=== PATIENT | female | born 1945 | race Caucasian/White ===

== ENCOUNTER 2016-12-16 11:55 | Observation (INO) | payer MEDICARE ==
[~2016-12-16] VITALS: Ht 162.6 cm; Wt 117.6 kg
[~2016-12-16 11:55] MED LIST: AMITIZA24 MCG PO; CATAPRES 0.1MG0.1 MG PO; CELECOXIB200 MG PO; COLACE 100MG C100 MG PO; CYMBALTA60 MG PO; FLEXERIL 10 MG10 MG PO; LASIX40 MG PO; LYRICA100 MG PO; MIRTAZAPINE15 MG PO; MOBIC15 MG PO; NORCO 7.5-3251 EACH PO; OMNICEF 300 MG300 MG PO; PLAQUENIL 200200 MG PO; PRILOSEC OTC20 MG PO; TENORMIN 25 MG25 MG PO; ZANTAC150 MG PO
[2016-12-16 21:04] LABS: HEMOGLOBIN 14.2 gm/dl (12.3-15.3); RED BLOOD COUNT 4.93 M/UL (4.00-5.10); WHITE BLOOD COUNT 8.9 K/UL (4.5-11.0)
[2016-12-16 21:27] LABS: BUN/CREATININE RATIO 24 (0-10)
[2016-12-17] MEDS ORDERED: TIZANIDINE HCL4 M1 PO (00:48)
== END 2016-12-17 15:40 | disposition home or self-care (01) ==
LOC: MED SURG 4 18:17
PROVIDERS: ADMIT Internal Medicine
DX: R53.83 Other fatigue (principal); R53.81 Other malaise; F41.9 Anxiety disorder, unspecified; F11.90 Opioid use, unspecified, uncomplicated; I10 Essential (primary) hypertension; K21.9 Gastro-esophageal reflux disease without esophagitis; M06.9 Rheumatoid arthritis, unspecified; F17.210 Nicotine dependence, cigarettes, uncomplicated; Z86.011 Personal history of benign neoplasm of the brain; Z79.899 Other long term (current) drug therapy; Z90.49 Acquired absence of other specified parts of digestive tract
CPT/HCPCS: 36415; 71010; 80053; 81001; 85025; 87077; 87086; 87186; G0378; G0379; J1650